=== PATIENT | female | born 1990 | race African-American/Black ===

== ENCOUNTER 2018-05-20 10:59 | Emergency (ER) | payer MEDICAID ==
[~2018-05-20] VITALS: Ht 162.6 cm; Wt 60.0 kg
[2018-05-20 14:02] LABS: CHLORIDE 104 mEq/L (98-107)
[2018-05-20 14:04] LABS: HEMATOCRIT. 32.9 % (36.0-48.0); HEMOGLOBIN. 11.2 g/dL (12.0-16.0); MEAN CORPUSCULAR HEMOGLOBIN 30.1 pg (28.0-32.0); MEAN CORPUSCULAR VOLUME 88.4 fL (81.0-99.0); PLATELET 229 x1000/uL (130-400); RED BLOOD CELL COUNT 3.71 mill/uL (4.2-5.4); RED CELL DISTRIBUTION WIDTH 13.1 % (11.6-14.6)
[2018-05-20 14:43] LABS: HCG SCREEN POSITIVE
[2018-05-20 14:52] LABS: PLATELET ESTIMATE NORMAL
[2018-05-20 17:58] VITALS: BP 110/66
== END 2018-05-20 18:01 | disposition home or self-care (01) ==
LOC: ER 11:17
DX: O26.893 Other specified pregnancy related conditions, third trimester (principal); R07.89 Other chest pain; F41.9 Anxiety disorder, unspecified; R00.0 Tachycardia, unspecified; O99.013 Anemia complicating pregnancy, third trimester; Z3A.29 29 weeks gestation of pregnancy
CPT/HCPCS: 36415; 71045; 81025; 83880; 84484; 84703; 93005; 99284